=== PATIENT | female | born 1985 | race Two or more races ===

== ENCOUNTER 2024-11-14 06:38 | Day surgery (SDC) | payer BC, SELFPAY | END 2024-11-14 09:37 | disposition home or self-care (01) | LOC: GI 06:38 | PROVIDERS: ATTENDING PHYSICIAN Internal Medicine | DX: K22.89 Other specified disease of esophagus (principal); K31.7 Polyp of stomach and duodenum; K31.89 Other diseases of stomach and duodenum; K31.A0 Gastric intestinal metaplasia, unspecified; R14.0 Abdominal distension (gaseous); R11.2 Nausea with vomiting, unspecified; R63.4 Abnormal weight loss | CPT/HCPCS: 43239; 88305; 88342 ==